=== PATIENT | male | born 1965 | race Caucasian/White ===

== ENCOUNTER 2017-03-18 17:10 | Emergency (ER) | payer SELFPAY ==
[2017-03-18] MEDS ORDERED: Acetaminophen 500 MG TAB ONE (17:43)
[2017-03-18] MEDS ORDERED: Ibuprofen 200 MG TAB ONE (17:43)
== END 2017-03-18 17:54 | disposition home or self-care (01) ==
LOC: NAV ERS 17:10
DX: M54.5 Low back pain (principal); F17.210 Nicotine dependence, cigarettes, uncomplicated; V89.2XXA Person injured in unspecified motor-vehicle accident, traffic, initial encounter; Y92.524 Gas station as the place of occurrence of the external cause
CPT/HCPCS: 99283